=== PATIENT | male | born 1970 | race Caucasian/White ===

== ENCOUNTER 2024-10-27 12:06 | Observation (INO) ==
[~2024-10-27 12:06] MED LIST: NS 0.45% 1000 ml BAG 1,000 ML IV SCH; Naloxone 0.4 mg VIAL 0.4 mg/ml 1 ml VIAL IV PRN
[2024-10-27] MEDS ORDERED: Tranexamic Acid 1 GM/100ML BAG 2,000 MG/200 ML BAG IV ONE (12:57)
[2024-10-27] MEDS ORDERED: ceFAZolin 2 GM PREMIX 2 GM/50 ML BAG ONE (12:58)
[2024-10-27] MEDS ORDERED: Rocuronium 50 mg VIAL 10 mg/ml 5 ml VIAL (50 mg) ONE (13:17)
[2024-10-27] MEDS ORDERED: Lidocaine 2% PF 5 ML VIAL ONE (13:21)
[2024-10-27] MEDS ORDERED: Propofol 10 MG/ML 20 ML BTL ONE (13:21)
[2024-10-27] MEDS: Lactated Ringers 1000 ml BAG 1,000 ML IV SCH ×2 (13:26→20:53)
[2024-10-27] MEDS: Buffered Lidocaine 1% SYRIN 1 ml INTRADERM ONE (13:26)
[2024-10-27 13:54] LABS: Rapid COVID-19 Molecular Undetected (Undetected)
[2024-10-27] MEDS ORDERED: KETAMINE HCL 10 MG/ML 20 ml VIAL (200 MG) ONE (14:17)
[2024-10-27] MEDS ORDERED: ROPIVACAINE 5 MG/ML 30 ML BTL (0.5%) ONE ×2 (15:03→17:05)
[2024-10-27] MEDS ORDERED: Midazolam 2 mg/2 ml VIAL 1 mg/ml 2 ml VIAL (2 mg) ONE (15:03)
[2024-10-27] MEDS ORDERED: Dexamethasone IV 4 MG/ML VIAL 1 ml VIAL ONE ×2 (15:03→16:39)
[2024-10-27] MEDS ORDERED: Famotidine IV 10 MG/ML 2 ml VIAL (20 mg) ONE (15:03)
[2024-10-27] MEDS ORDERED: fentaNYL 100 mcg/2 ml 50 MCG/ML VIAL ONE ×2 (15:03→18:57)
[2024-10-27] MEDS ORDERED: fentaNYL 250 mcg/5 ml 50 MCG/ML 5 ml VIAL (250 MCG) ONE (16:06)
[2024-10-27] MEDS ORDERED: HYDROmorphone 0.5 MG/0.5 ML SYRINGE ONE (16:22)
[2024-10-27] MEDS ORDERED: Magnesium Hydroxide LIQ 30 ML UDC PO PRN (16:25)
[2024-10-27] MEDS ORDERED: Lactulose 30 ml UDC PO PRN (16:25)
[2024-10-27] MEDS ORDERED: Ondansetron ODT 4 mg TAB 4 MG TAB PO PRN (16:25)
[2024-10-27] MEDS ORDERED: Ondansetron 4 mg VIAL 2 MG/ML 2 ml VIAL IV PRN (16:25)
[2024-10-27] MEDS ORDERED: Calcium Carb (TUMS) 500 mg CHEW TAB PO PRN (16:25)
[2024-10-27] MEDS ORDERED: Morphine 2 MG/ML SYRINGE IV PRN (16:25)
[2024-10-27] MEDS ORDERED: Ondansetron 4 mg VIAL 2 MG/ML 2 ml VIAL ONE ×2 (16:39→19:22)
[2024-10-27] MEDS: fentaNYL 100 mcg/2 ml 50 MCG/ML VIAL IV PRN (18:59)
[2024-10-27] MEDS: Ondansetron 4 mg VIAL 2 MG/ML 2 ml VIAL IV PRN (19:25)
[2024-10-27] MEDS: Magnesium Hydroxide LIQ 30 ML UDC PO SCH (20:51)
[2024-10-27] MEDS: Acetaminophen IV 1 GM/100ML 1,000 MG/100 ML BAG IV ONE (20:53)
[2024-10-28] MEDS: ceFAZolin 2 GM PREMIX 2 GM/50 ML BAG IV SCH (00:10)
[2024-10-28 06:09] LABS: Hematocrit 32.4 % (38-53); Hemoglobin 11.5 g/dL (13.2-16.3); Platelet Count 194 10^3/uL (150-450)
[2024-10-28 06:40] LABS: Creatinine, Serum 1.16 mg/dL (0.67-1.17); Potassium 3.8 mmol/L (3.5-5.0); eGFR CKD-EPI 75.3 (>60)
[2024-10-28] MEDS: Vitamin THERAPEUTIC TAB PO SCH (08:23)
== END 2024-10-28 14:10 | disposition home or self-care (01) ==
LOC: SSU 12:06 → OR 12:06
PROVIDERS: ADMIT Orthopaedic Surgery Adult Reconstructive Orthopaedic Surgery; ATTEND Orthopaedic Surgery Adult Reconstructive Orthopaedic Surgery